=== PATIENT | male | born 1995 | race Caucasian/White ===

== ENCOUNTER 2016-11-07 19:30 | Emergency (ER) | payer MEDICAID, SELFPAY ==
[~2016-11-07] VITALS: Ht 175.3 cm; Wt 74.1 kg
[2016-11-07 20:53] VITALS: BP 127/75
== END 2016-11-07 22:08 | disposition home or self-care (01) ==
LOC: ED 22:00
DX: K04.7 Periapical abscess without sinus (principal)
CPT/HCPCS: 99283